=== PATIENT | male | born 1975 | race Caucasian/White ===

== ENCOUNTER 2018-04-25 06:58 | Emergency (ER) | payer BC ==
[2018-04-25 07:14] VITALS: PULSE 58
--- NOTE | 2018-04-25 07:30 | ERPHSYRPT ---
- History of Present Illness Time Seen by Provider: 04/25/18 07:18 Source: patient Exam Limitations: no limitations Patient Subjective Stated Complaint: PT states "I went swimming two days ago and got water in my ears. Now both ears hurt and the pain is getting worse and I am having a really hard time hearing out of both my ears." Triage Nursing Assessment: Pt alert and oriented X 3, skin pwd PT ambulates with an upright steady gait, able to speak in clear full sentences. PT speaking loud, hard of hearing bilat. Physician History: Pt started c/o bilateral ear pain, drainage since yesterday. He was swimming 2 days ago, denies any injury, no headaches, cough, fever or vomiting. He tried some Peroxide this morning, but did not relieve his pain. Timing/Duration: gradual onset Severity: severe ENT Location: ear (R), ear (L) Prearrival Treatment: over the counter meds Modifying Factors: Improves With: nothing Associated Symptoms: ear pain (R), ear pain (L) Allergies/Adverse Reactions: No Known Drug Allergies Allergy (Unverified 04/25/18 07:13) Hx Tetanus, Diphtheria Vaccination/Date Given: Yes Hx Influenza Vaccination/Date Given: No Hx Pneumococcal Vaccination/Date Given: No Immunizations Up to Date: Yes - Review of Systems Constitutional: No Symptoms Ears, Nose, & Throat: Ear Pain All Other Systems: Reviewed and Negative - Past Medical History Pertinent Past Medical History: No - Past Surgical History Past Surgical History: Yes Other Surgical History: right ankle. right knee. left knee. tonsilectomy - Social History Smoking Status: Current every day smoker How long have you smoked: years Exposure to second hand smoke: Yes Drug Use: none Patient Lives Alone: No - Nursing Vital Signs Nursing Vital Signs: Initial Vital Signs Temperature 97.8 F 04/25/18 07:07 Pulse Rate 58 L 04/25/18 07:07 Respiratory Rate 16 04/25/18 07:07 Blood Pressure 135/96 04/25/18 07:07 O2 Sat by Pulse Oximetry 97 04/25/18 07:07 Pain Scale Pain Intensity 5 - Physical Exam General Appearance: no apparent distress Eye Exam: bilateral eye: PERRL Ear Exam: bilateral ear: erythema, foreign body (soft, yellow wax), tenderness ( both ear canals) Nasal Exam: normal inspection Throat Exam: normal, pharynx normal Neck Exam: normal inspection, non-tender, supple, full range of motion, trachea midline, No lymphadenopathy (R), No lymphadenopathy (L) Cardiovascular/Respiratory Exam: chest non-tender, normal breath sounds, regular rate/rhythm, heart sounds normal, No no JVD Abdominal Exam: non-tender, soft Neurologic Exam: alert, oriented x 3 Skin Exam: normal color, warm, dry, No rash SpO2 Interpretation: normal SpO2: 97 Oxygen Delivery: Room Air - Course Nursing assessment & vital signs reviewed: Yes Ordered Tests: Medication Summary Generic Name Dose Route Start Last Admin Trade Name Freq PRN Reason Stop Dose Admin Ibuprofen 400 mg 04/25/18 07:22 Motrin 400 Mg PO 04/25/18 07:23 STAT ONE - Progress Progress: improved Progress Note: 04/25/18 07:25 Pt has been afebrile, stable, no severe pain or distress. - Departure Time of Disposition: 07:26 Departure Disposition: Home Clinical Impression: Otitis externa Qualifiers: Otitis externa type: unspecified type Chronicity: acute Laterality: bilateral Qualified Code(s): H60.503 - Unspecified acute noninfective otitis externa, bilateral Condition: Stable Critical Care Time: No Instructions: Outer Ear Infection (DC) Additional Instructions: Protect ears from water x 2 weeks, return if severe headaches, vomiting, fever> 102 F! Follow up with your Physician in 3-4 days! Prescriptions: Amoxicillin 500 mg PO TID 10 Days #30 capsule Jorge A/Baci/Poly/Hc Ear Solution* [CORTISPORIN EAR DROPS Solution 1OML] 4 drops OT TID #1 bottle
[2018-04-25] MEDS ORDERED: MOTRIN 400 MG ONE (07:32)
[2018-04-25] MEDS: MOTRIN 400 MG PO ONE (07:33)
[2018-04-25 07:40] VITALS: BP 130/90; O2SAT 99
== END 2018-04-25 07:40 | disposition home or self-care (01) ==
LOC: ED 06:58
DX: H60.93 Unspecified otitis externa, bilateral (principal); Z72.0 Tobacco use
CPT/HCPCS: 99283; A9270-GY

== ENCOUNTER 2018-05-26 07:59 | Emergency (ER) | payer BC, OTHER ==
[2018-05-26] MEDS ORDERED: TETRACAINE 0.5% STERI-UNIT SOL OP ONE (08:15)
[2018-05-26] MEDS ORDERED: Fluor-I-Strip/Ful-Flo OP ONE ×3 (08:15→09:12)
--- NOTE | 2018-05-26 08:23 | ERPHSYRPT ---
- History of Present Illness Time Seen by Provider: 05/26/18 08:18 Source: patient Exam Limitations: no limitations Physician History: 43-year-old white male arrives with complaint of pain in both eyes Patient states he was sandblasting he got a blow back with sand and air He has pain in both eyes He states this occurred approximately 45 minutes ago . past medical history is negative Past surgical history includes right ankle right knee and tonsillectomy Social history positive for alcohol use positive for tobacco use she denies illicit drug use last tetanus less than 5 years Timing/Duration: today (1-1/2 hours ago) Location: bilateral eyes Severity: moderate Apparent Injury: possibly Associated Symptoms: pain, burning, sensitivity to light, redness, No itching, No matting, No foreign body sensation Chemical Exposure: No Trauma: Yes (sandblasting and blow back of air hit eyes) Welding Arc/Tanning Bed Exposure: No Allergies/Adverse Reactions: No Known Drug Allergies Allergy (Unverified 05/26/18 08:22) Hx Tetanus, Diphtheria Vaccination/Date Given: Yes Hx Influenza Vaccination/Date Given: No Hx Pneumococcal Vaccination/Date Given: No - Review of Systems Constitutional: No Fever, No Chills Eyes: Eye Pain, Tearing Ears, Nose, & Throat: No Symptoms Respiratory: No Cough, No Dyspnea Cardiac: No Chest Pain, No Edema, No Syncope Abdominal/Gastrointestinal: No Abdominal Pain, No Nausea, No Vomiting, No Diarrhea Genitourinary Symptoms: No Dysuria Musculoskeletal: No Back Pain, No Neck Pain Skin: Other (Small pieces of sand embedded in face) Neurological: No Dizziness, No Focal Weakness, No Sensory Changes Psychological: No Symptoms Endocrine: No Symptoms All Other Systems: Reviewed and Negative - Past Medical History Pertinent Past Medical History: No - Past Surgical History Past Surgical History: Yes Other Surgical History: right ankle. right knee. left knee. tonsilectomy - Social History Smoking Status: Current every day smoker How long have you smoked: years Exposure to second hand smoke: Yes Drug Use: none Patient Lives Alone: No - Nursing Vital Signs Nursing Vital Signs: Initial Vital Signs Temperature 97.8 F 05/26/18 08:04 Pulse Rate 83 05/26/18 08:04 Respiratory Rate 18 05/26/18 08:04 Blood Pressure 130/89 05/26/18 08:04 O2 Sat by Pulse Oximetry 95 05/26/18 08:04 Pain Scale Pain Intensity 8 - Physical Exam General Appearance: moderate distress Vision Acuity Degree Evaluation Phase: Uncorrected Vision Acuity Right Eye: 20/100 Vision Acuity Left Eye: 20/50 Eye Exam: left eye: foreign body (multiple small foreign bodies left eye one in cornea 2 in sclera medially), bilateral eye: PERRL, EOMI, corneal abrasion ( bilateral corneal abrasions), other Ears, Nose, Throat Exam: normal ENT inspection, TMs normal, pharynx normal Neck Exam: normal inspection, non-tender, supple, full range of motion Respiratory Exam: normal breath sounds, lungs clear, airway intact, No chest tenderness, No respiratory distress, No diminished breath sounds, No accessory muscle use Cardiovascular Exam: regular rate/rhythm, normal heart sounds, capillary refill <2 sec Gastrointestinal Exam: soft, normal bowel sounds, No tenderness, No distention, No mass, No guarding, No rebound Extremity Exam: normal inspection, normal range of motion, pelvis stable Neurologic: alert, oriented x 3, cooperative, rubber molder II-XII nml as tested, normal mood/affect, sensation nml, No motor deficits, No sensory deficit Skin Exam: other (Small pieces of sand embedded in face) SpO2 Interpretation: normal (95% with him. I put him) - Course Nursing assessment & vital signs reviewed: Yes Ordered Tests: Active Orders 24 hr Category Date Time Status Visual Acuity STAT Care 05/26/18 09:12 Active Wound Care STAT Care 05/26/18 09:13 Active Medication Summary Discontinued Medications Generic Name Dose Route Start Last Admin Trade Name Scottq PRN Reason Stop Dose Admin Bacitracin Zinc 0.9 gm 05/26/18 09:13 05/26/18 09:18 Baciguent Packet TP 05/26/18 09:14 0.9 gm STAT ONE Administration Bacitracin Zinc Confirm 05/26/18 09:13 Baciguent Packet Administered 05/26/18 09:14 Dose 1 gm .ROUTE .STK-MED ONE Eye Irrigation Solution 15 ml 05/26/18 09:12 05/26/18 09:19 Eye-Stream Solution OP 05/26/18 09:13 30 ml STAT ONE Administration Fluorescein Sodium Confirm 05/26/18 08:15 Qvane-H-Ftdrd/Ful-Marcos Administered 05/26/18 08:16 Dose 1 mg OP .STK-MED ONE Fluorescein Sodium Confirm 05/26/18 08:38 Ihhxx-Y-Zyrih/Ful-Marcos Administered 05/26/18 08:39 Dose 1 mg OP .STK-MED ONE Fluorescein Sodium 1 mg 05/26/18 09:12 05/26/18 09:19 Vonos-X-Dctpn/Ful-Marcos OP 05/26/18 09:13 1 mg STAT ONE Administration Tetracaine HCl Confirm 05/26/18 08:15 Tetracaine 0.5% Steri-Unit Petra Administered 05/26/18 08:16 Dose 4 ml OP .STK-MED ONE Tetracaine HCl 4 ml 05/26/18 09:12 05/26/18 09:20 Tetracaine 0.5% Steri-Unit Petra OP 05/26/18 09:13 4 ml STAT STA Administration - Progress Progress: improved Progress Note: 05/26/18 08:49 This is a 43-year-old white male arrives with complaint of pain in both eyes. Patient states he was sandblasting and had low back and he got sand into his face and both eyes. patient does state that he was wearing safety glasses at the time of injury. Patient feels like he has foreign bodies in both eyes. He states he has blurry vision. On physical examination patient has multiple small sand particles intubated in his face. His eyes vision exam 20/100 right 20/50 on the left. Patient with multiple corneal abrasions in both eyes. Patient has several small embedded sand particles in his left eye. Primarily towards the left side appears like there is one in the cornea and the 2 in the sclera. I everted both lids he has no additional foreign bodies. Tetracaine 0.5% was instilled in both eyes facilitate exam. Both eyes were rinsed with sterile Dacriose. They were stained with fluoroscopy seem to reveal abrasions. I did try to remove foreign bodies with cotton tip applicator patient's left eye however this was unsuccessful. Patient is up-to-date on his tetanus. Will have nurse try to clean the patient' s face with a washcloth. I'm going to refer the patient to Dr. Smith the distribution operations manager in [facility]. We will talk with him shortly. 05/26/18 09:19 05/26/18 09:[address] Smith, he will see the patient in his office now. No will send the patient to him. 05/26/18 09:34 The patient's face was cleansed with washcloth by the patient's nurse bacitracin was applied this removed many of the patient's of sand particles. He is to continue doing this at home. And apply bacitracin. - Departure Time of Disposition: 09:32 Departure Disposition: Home Clinical Impression: Bilateral corneal abrasions Qualifiers: Encounter type: initial encounter Qualified Code(s): S05.01XA - Injury of conjunctiva and corneal abrasion without foreign body, right eye, initial encounter Foreign body in multiple sites of left eye Qualifiers: Encounter type: initial encounter Qualified Code(s): T15.82XA - Foreign body in other and multiple parts of external eye, left eye, initial encounter Condition: Fair Critical Care Time: No Referrals: DOCTOR,NO FAMILY [Primary Care Provider] - Additional Instructions: Proceed to Dr. Smith's office do not rub your eyes. Bacitracin to your face daily clean with a washcloth. Return for acute distress or for severe symptoms. Follow-up with your family doctor if problems.
[2018-05-26] MEDS ORDERED: Eye-Stream Solution OP ONE (09:12)
[2018-05-26] MEDS ORDERED: TETRACAINE 0.5% STERI-UNIT SOL OP STA (09:12)
[2018-05-26] MEDS ORDERED: BACIGUENT PACKET ONE (09:13)
[2018-05-26] MEDS ORDERED: BACIGUENT PACKET TP ONE (09:13)
[2018-05-26 09:42] VITALS: BP 137/90; PULSE 76; O2SAT 97
== END 2018-05-26 09:44 | disposition home or self-care (01) ==
LOC: ED 07:59
DX: S05.01XA Injury of conjunctiva and corneal abrasion without foreign body, right eye, initial encounter (principal); T15.82XA Foreign body in other and multiple parts of external eye, left eye, initial encounter; T15.81XA Foreign body in other and multiple parts of external eye, right eye, initial encounter; S00.252A Superficial foreign body of left eyelid and periocular area, initial encounter; X58.XXXA Exposure to other specified factors, initial encounter; Z72.0 Tobacco use
CPT/HCPCS: 99283; A9270-GY